=== PATIENT | male | born 1965 | race Caucasian/White ===

== ENCOUNTER 2025-09-16 18:41 | Emergency (ER) | payer BC ==
[~2025-09-16] VITALS: Ht 177.8 cm; Wt 75.0 kg
[2025-09-16 18:44] VITALS: O2SAT 100
[2025-09-16 18:48] VITALS: BP 129/73; PULSE 74; RESP 18; TEMP 36.8; O2SAT 99
[2025-09-16 19:35] LABS: BASOPHILS % 1.0 % (0.0-2.0); EOSINOPHILS % 0.4 % (0.0-5.0); HEMATOCRIT. 39.1 % (42.0-52.0); HEMOGLOBIN. 12.8 g/dL (14.0-18.0); LYMPHOCYTES % 47.9 % (20.0-50.0); MEAN PLATELET VOLUME 8.4 fl (7.4-10.4); MONOCYTES % 5.9 % (2.0-8.0); NEUTROPHILS % 44.8 % (40.0-76.0); PLATELET 285 x1000/uL (130-400); RED BLOOD CELL COUNT 4.69 mill/uL (4.7-6.1); RED CELL DISTRIBUTION WIDTH 13.6 % (11.6-14.6)
[2025-09-16 19:52] LABS: CREATININE 1.0 mg/dL (0.6-1.3)
[2025-09-16 19:53] LABS: PROTEIN TOTAL 7.4 g/dL (6.0-8.3); UREA NITROGEN BLOOD 12 mg/dL (9-23)
[2025-09-16 19:54] LABS: ASPARTATE AMINOTRANSFERASE 21 IU/L (<34); TROPONIN I HIGH SENSITIVITY 4 ng/L (3.0-53)
[2025-09-16 19:55] LABS: BILIRUBIN DIRECT < 0.1 mg/dL (<=3.0); BILIRUBIN TOTAL 0.4 mg/dL (0.1-1.0)
== END 2025-09-16 20:31 | disposition left against medical advice (07) ==
LOC: ER 18:41 → EDBEDREQ 19:01 → EDBEDREQTM 20:19 → EDBEDREQ 20:19 → ER 20:31 → CMPBEDREQ 09-17 09:14
DX: R07.9 Chest pain, unspecified (principal); R06.02 Shortness of breath; Z79.899 Other long term (current) drug therapy
CPT/HCPCS: 36415; 71045; 80048; 80076; 83880; 84484; 85025; 93005; 99285